=== PATIENT | male | born 1990 | race Caucasian/White ===

== ENCOUNTER 2017-12-08 14:10 | Emergency (ER) | payer OTHER ==
[~2017-12-08] VITALS: Ht 165.1 cm; Wt 72.6 kg
[~2017-12-08 14:10] MED LIST: METH5TAB2 PO
[2017-12-08 15:36] VITALS: BP 128/68
--- NOTE | 2017-12-08 15:36 | NUR ---
ASSISTED TO ED BED 13 AT THIS TIME. PT IS C/O PAIN AND SWELLING TO R L E X 10 DAYS. +REDNESS. POOR HISTORIAN. NAD VSS RR EVEN AND UNLABORED. WILL CONT TO MONITOR
[2017-12-08] MEDS ORDERED: IV NS 0.9% 1,000 ML BAG IV ONE (16:00)
[2017-12-08] MEDS ORDERED: VANCOMYCIN 1 GM in IV D5W 250 ML IV ONE (16:00)
--- NOTE | 2017-12-08 16:22 | NUR ---
PT WANTS TO LEAVE AND IS REFUSING TO REMOVE THE IV. STAFF are still to take out IV. IV removed. Catheter intact and site benign. Pressure and 4x4 applied to site. No bleeding noted.
--- NOTE | 2017-12-08 16:23 | NUR ---
Patient does not wish to proceed with medical care recommended by Yuri METER MAINTENANCE PERSON. Patient given information related to possible complications, up to and including , which could occur as a result of leaving the hospital at this time. Patient verbalizes understanding of risks involved due to leaving against medical advice. Patient refused to sign AMA form. Yuri METER MAINTENANCE PERSON notified. Pt walked out
== END 2017-12-08 16:32 | disposition left against medical advice (07) ==
LOC: ER 14:11
DX: R60.0 Localized edema (principal); L53.8 Other specified erythematous conditions; F17.200 Nicotine dependence, unspecified, uncomplicated; F41.9 Anxiety disorder, unspecified; F19.10 Other psychoactive substance abuse, uncomplicated; Z59.0 Homelessness; Z86.718 Personal history of other venous thrombosis and embolism
CPT/HCPCS: 99284; 99406; A4606; Z7610; Z7502

== ENCOUNTER → 2017-12-18 | Emergency (ER) | payer OTHER ==
--- NOTE | 2017-12-18 10:54 | NUR ---
CALLED TO TRIAGE, NO ANSWER
--- NOTE | 2017-12-18 10:59 | NUR ---
CALLED TO TRIAGE, NO ANSWER
== END | disposition left against medical advice (07) ==
LOC: ER 10:50
DX: Z53.21 Procedure and treatment not carried out due to patient leaving prior to being seen by health care provider (principal)